=== PATIENT | female | born 1940 ===

== ENCOUNTER 2018-02-22 10:27 | Day surgery (SDC) | payer MEDICARE ==
[2018-02-22] MEDS ORDERED: Lactated Ringer's 500 ML IV ONE (14:05)
[2018-02-22] MEDS ORDERED: Propofol 10 mg/ml Inj (20 ML) ONE (14:06)
[2018-02-22 14:25] VITALS: TEMP 97
[2018-02-22 14:38] VITALS: BP 147/74; PULSE 84; RESP 18; O2SAT 98
== END 2018-02-22 15:18 | disposition home or self-care (01) ==
LOC: H.ENDO 10:27
PROVIDERS: ATTEND Internal Medicine Gastroenterology
DX: Z12.11 Encounter for screening for malignant neoplasm of colon (principal); K21.9 Gastro-esophageal reflux disease without esophagitis; R13.10 Dysphagia, unspecified; K31.89 Other diseases of stomach and duodenum
CPT/HCPCS: 88305; J2001; J2704; J7120